=== PATIENT | female | born 1990 | race Caucasian/White ===

== ENCOUNTER 2017-09-12 08:46 | Emergency (ER) | payer OTHER ==
[~2017-09-12] VITALS: Ht 175.3 cm; Wt 95.2 kg
[~2017-09-12 08:46] MED LIST: ACET500 PO; ALBU90I INH; ALBU90OI; ALBU90OI INH; AMIT75; AZIT250 PO; AZIT500 PO; BCP'S; BENZ100A PO; BIRTH CONTROL PILLS; CYCL10 PO; Cleocin HCl150 MG PO; DESO.25TC TOP; DIPATR PO; FEXO60; HYDACE5 PO; IBUP600 PO; LEVFLO250 PO; LORA1 PO; ONDA4 PO; OXYACE5T PO; OXYC5 PO; PRED20 PO; PROC10 PO; PROM25; PROM25 PO; PROMETHAZINE; Permethrin60 GM TP; QUET200 PO; RXONDA4ODT MM; RXOXYACE PO; RXPROACE PO; RXPROM25 PO; SERT25 PO; SPACER IH; SULTRIDS PO; TRAM50 PO; TYLENOL/ADVIL PRN; VENL37.5ER; Verotin-Gr Cap1 EACH PO; YASMIN BCP; ZOFRAN; [UNRECOGNIZED DRUG - OTHER]; [UNRECOGNIZED DRUG - REMARK]
[2017-09-12] MEDS ORDERED: ALBU90OI61 INH (08:58)
[2017-09-12] MEDS ORDERED: ALBU90OI INH (09:12)
== END 2017-09-12 09:20 | disposition home or self-care (01) ==
LOC: ER 08:46
DX: J06.9 Acute upper respiratory infection, unspecified (principal); Z88.8 Allergy status to other drugs, medicaments and biological substances; Z88.1 Allergy status to other antibiotic agents; Z88.5 Allergy status to narcotic agent; Z79.899 Other long term (current) drug therapy; J45.909 Unspecified asthma, uncomplicated; F17.200 Nicotine dependence, unspecified, uncomplicated
CPT/HCPCS: 99282

== ENCOUNTER → 2018-10-15 | Outpatient (CLI) | payer OTHER ==
[~2018-10-15] MED LIST changes: +ALBU90OI61 INH
[2018-10-17 23:06] LABS: CHLAMYDIA TRACHOMATIS, NAA Indeterminate (Negative); NEISSERIA GONORRHOEAE, NAA Negative (Negative)
== END | disposition home or self-care (01) ==
LOC: LAB 09:59 → LAB SHORT 09:59
PROVIDERS: Obstetrics & Gynecology
DX: Z11.3 Encounter for screening for infections with a predominantly sexual mode of transmission (principal); Z01.419 Encounter for gynecological examination (general) (routine) without abnormal findings
CPT/HCPCS: 87491; 87591; G0123

== ENCOUNTER → 2018-10-19 | Outpatient (CLI) | payer OTHER ==
[2018-10-21 00:09] LABS: CHLAMYDIA TRACHOMATIS, NAA Negative (Negative); NEISSERIA GONORRHOEAE, NAA Negative (Negative)
== END | disposition home or self-care (01) ==
LOC: LAB SHORT 16:11 → LAB 16:11
PROVIDERS: Obstetrics & Gynecology
DX: Z11.3 Encounter for screening for infections with a predominantly sexual mode of transmission (principal)
CPT/HCPCS: 87491; 87591

== ENCOUNTER 2025-06-08 10:06 | Emergency (ER) | payer OTHER ==
[~2025-06-08] VITALS: Ht 175.3 cm; Wt 98.4 kg
[2025-06-08 10:11] VITALS: BP 144/106
== END 2025-06-08 10:17 | disposition home or self-care (01) ==
LOC: ER 10:06
DX: L03.211 Cellulitis of face (principal); J45.909 Unspecified asthma, uncomplicated; F17.200 Nicotine dependence, unspecified, uncomplicated; Z59.89 Other problems related to housing and economic circumstances; Z88.5 Allergy status to narcotic agent; Z88.8 Allergy status to other drugs, medicaments and biological substances; Z79.899 Other long term (current) drug therapy
CPT/HCPCS: 99283

== ENCOUNTER → 2025-07-13 | Outpatient (CLI) | payer OTHER | END | disposition home or self-care (01) | LOC: LAB SHORT 17:25 → LAB 17:25 | PROVIDERS: Hospitalist | DX: Z12.4 Encounter for screening for malignant neoplasm of cervix (principal); L65.9 Nonscarring hair loss, unspecified | CPT/HCPCS: 84443; 87624; G0145 ==